=== PATIENT | male | born 1985 | race Caucasian/White ===

== ENCOUNTER 2016-09-30 13:24 | Outpatient (CLI) | payer OTHER ==
[~2016-09-30] VITALS: Ht 190.5 cm; Wt 122.5 kg
[2016-09-30] MEDS ORDERED: BUPIVACAINE 0.25% 30 ML (SENSORCAINE) VIAL ONE (13:27)
[2016-09-30] MEDS ORDERED: TRIAMCINOLONE ACET (KENALOG-40) 40 MG/ML 1 ML VIAL ONE (13:27)
[2016-09-30 13:37] VITALS: BP 116/83
[2016-09-30 14:00] VITALS: BP 135/99
--- NOTE | 2016-09-30 14:31 | Pain Medicine-Procedure ---
Procedure Pre-Op/Post-Op Diagnosis Diagnosis: disc disorder with radiculopathy, lumbar Indications for Operation Low back pain Attending Surgeon Yesica Procedure Date of Service: Sep 30, 2016 Procedure: Lumbar Epidural Steroid Injection at the L4-L5 level under Fluoroscopic Guidance Procedure: Patient was identified in the holding area. After risks, benefits, and alternatives were discussed with the patient, informed consent was obtained. Patient was brought to the fluoroscopy suite and placed prone on the procedure room table. A time out was performed. Vital signs were monitored throughout the procedure. The patients low back was prepped and draped in the usual sterile fashion. The patients skin was anesthetized using 2% Lidocaine. A Tuohy needle was inserted and advanced to the L4-L5 epidural space under fluoroscopic guidance using the loss of resistance technique and intermittent projection of fluoroscopy. There was no paresthesia with needle placement. The needle position was confirmed in both the AP and lateral view. After negative aspiration 2ml of contrast was injected under live fluoroscopy which showed good spread of the contrast in the epidural space at the appropriate level, there was no intravascular or subarachnoid spread. Again, after negative aspiration for heme or CSF, 2 ml of 0.25% Bupivicaine, 2ml of preservative free normal saline, and 80mg of Kenalog was injected. The needle was removed and a sterile bandage was placed and the patient was transferred to the recovery area in stable condition. After a brief period of observation, patient was discharged to home with no new neurological deficits and no apparent complications. Complications None KELLY FERRER MD Sep 30, 2016 2:31 pm
== END 2016-09-30 14:01 | disposition home or self-care (01) ==
LOC: CARD 13:24
PROVIDERS: ATTEND Pain Medicine Pain Medicine
DX: M51.16 Intervertebral disc disorders with radiculopathy, lumbar region (principal)
CPT/HCPCS: 62323

== ENCOUNTER 2020-03-30 10:04 | Emergency (ER) | payer SELFPAY ==
--- NOTE | 2020-03-30 10:14 | NUR ---
This RN went to get the patient from waiting room and the patient wasn't there. The patient told registration staff that he was going to smoke a cigarette. Will attempt to room patient at a later time.
[2020-03-30] MEDS ORDERED: RX-NEO/POLYB/HC OTIC (CORTISPORIN) SUSP 10 ML BTL EACH EAR ONE (11:15)
[2020-03-30] MEDS ORDERED: LIDOCAINE 2% VISCOUS 15 ML UDC PO ONE (11:15)
--- NOTE | 2020-03-30 11:18 | ED EENT ---
History of Present Illness General Chief Complaint: Ear Problems Stated Complaint: LT EAR PAIN/DISCHARGE Nursing Triage Note: ear pain started two days ago in left ear. Is having discharge and hearing loss in left ear. States he has had swimmers ear in the past Source: patient Exam Limitations: no limitations History of Present Illness Date Seen by Provider: Mar 30, 2020 Time Seen by Provider: 10:55 Initial Comments 34-year-old male presents with 3 days of left ear pain with drainage. Denies history of ear infections, has had some loss of hearing subsequently last few days. Denies any nasal congestion, cough, fever or recent illness. Allergies and Home Medications Allergies Coded Allergies: No Known Drug Allergies (Unverified , 03/30/20) Home Medications Tramadol HCl 50 Mg Tablet, 50 MG PO Q6H PRN for PAIN Prescribed by: MUMTAZ CADET on 03/30/20 1126 Patient Home Medication List Home Medication List Reviewed: Yes Review of Systems Review of Systems Constitutional: see HPI; No dizziness, No fever, No malaise, No weakness Eyes: No Symptoms Reported Ears: Denies Dizziness; Pain; Denies Tinnitus, Denies Bloody Discharge, Denies Clear Discharge; Purulent Discharge; Denies Serosanguinous Discharge, Denies Previous Injury Nose: no symptoms reported Mouth: no symptoms reported Throat: no symptoms reported Respiratory: no symptoms reported Past Vhpibcu-Pltiwx-Febwoy Hx Past Med/Social Hx: Reviewed Nursing Past Med/Soc Hx Patient Social History Alcohol Use: Denies Use Recreational Drug Use: No Smoking Status: Current Everyday Smoker Type Used: Cigarettes 2nd Hand Smoke Exposure: Yes Recent Foreign Travel: No Contact w/Someone Who Travel: No Recent Infectious Disease Expo: No Recent Hopitalizations: No Seasonal Allergies Seasonal Allergies: No Past Medical History Surgeries: Yes Tonsillectomy Respiratory: No Cardiac: No Neurological: No Genitourinary: No Gastrointestinal: No Musculoskeletal: No Endocrine: No HEENT: No Cancer: No Psychosocial: No Integumentary: No Blood Disorders: No Adverse Reaction/Blood Tranf: No Physical Exam Vital Signs Vital Signs - First Documented 03/30/20 10:36 Temp 36.4 Pulse 99 Resp 16 B/P (MAP) 150/95 (113) Pulse Ox 96 Height, Weight, BMI Height: 6'3.00" Weight: 270lbs. 0.0oz. 122.549606cm; 33.8 BMI Method: General Appearance: WD/WN, no apparent distress Ears: left ear swelling, left ear tenderness, left ear other (moderate edema of canal & nearly occluded. moderate crusting and drainage or purulent DC) Neck: non-tender, supple; No lymphadenopathy (R), No lymphadenopathy (L) Neurologic/Psychiatric: alert, normal mood/affect Skin: normal color, warm/dry Progress/Results/Core Measures Results/Orders My Orders Orders - MUMTAZ CADET DO Lidocaine 2% Viscous 15 Ml (Xylocaine Vi (03/30/20 11:15) Rx-Govind/Poly/Hc Otic Susp (Rx-Cortisporin (03/30/20 11:15) Medications Given in ED Current Medications Medications Dose Ordered Sig/Kathy Route Start Time Stop Time Status Last Admin Dose Admin Neomycin/ Polymyxin/ Hydrocortisone 1 ml ONCE ONCE EACH EAR 03/30/20 11:15 03/30/20 11:16 DC 03/30/20 11:25 1 ML Vital Signs/I&O 03/30/20 03/30/20 10:36 11:36 Temp 36.4 Pulse 99 84 Resp 16 16 B/P (MAP) 150/95 (113) 145/93 Pulse Ox 96 95 Blood Pressure Mean: 113 Progress Progress Note : Progress Note ear wick inserted without difficulty, pt tolerated well. Departure Impression Primary Impression: Otitis externa Qualified Codes: H60.332 - Swimmer's ear, left ear Disposition: HOME, SELF-CARE Condition: Improved Departure-Patient Inst. Decision time for Depature: 11:23 Referrals: BOLA PEREIRA MD NO,LOCAL PHYSICIAN (PCP) Primary Care Physician Patient Instructions: Outer Ear Infection (DC) Add. Discharge Instructions: Call Dr Pereira (ENT) for a follow up appointment in 1 week, return to the ER sooner if worse All discharge instructions reviewed with patient and/or family. Voiced understanding. Scripts Tramadol HCl (Tramadol HCl) 50 Mg Tablet 50 MG PO Q6H PRN for PAIN for 3 Days, #10 TAB 0 Refills Prov: MUMTAZ CADET DO 03/30/20 Work/School Note: Work Release Form Date Seen in the Emergency Department: Mar 30, 2020 Return to Work: Mar 31, 2020 Restrictions: No Restrictions MUMTAZ CADET DO Mar 30, 2020 11:17
[2020-03-30] MEDS ORDERED: TRM50T PO (11:25)
[2020-03-30 11:36] VITALS: BP 145/93
== END 2020-03-30 11:37 | disposition home or self-care (01) ==
LOC: EDUNIT# 10:04 → ER FS 10:05
DX: H60.92 Unspecified otitis externa, left ear (principal); F17.210 Nicotine dependence, cigarettes, uncomplicated
CPT/HCPCS: 99283

== ENCOUNTER 2020-08-26 14:56 | Emergency (ER) | payer SELFPAY ==
[~2020-08-26 14:56] MED LIST: TRM50T PO
[2020-08-26 15:00] VITALS: BP 147/89
--- NOTE | 2020-08-26 15:29 | ED General ---
General Chief Complaint: General Problems/Pain Stated Complaint: VOMITING; HEARTBURN; LACK OF APPETITE Source of Information: Patient History of Present Illness Date Seen by Provider: Aug 26, 2020 Time Seen by Provider: 14:58 Initial Comments 35 yo male presents with complaint that he has been throwing up and coughing up frothy sputum and phlegm. He has a glass with him that he reports is what he is coughing up and he requests to have it tested to check for "DNA and people's sperm" because he thinks it has his and someone elses sperm in the sputum. He states if we test it then we could confirm that it has 2 people's DNA in it. He then states he knows if we test him for drugs that we will find Meth and "other stuff" because "I admit that I'm an addict, but this is something different going on and I need it checked out". He also says that he has a mental health provider he follows with already and he does not feel he needs to see anyone for that today. He really wants the testing done on the sputum in his glass he brought and wants to know why he is throwing up and "wasting hundreds of dollars of food" with his vomiting and loss of appetite. "If you all can't do that then I guess we are done here and I dont want to waste a bunch of money when you can't do the testing on this." Allergies and Home Medications Allergies Coded Allergies: No Known Drug Allergies (Unverified , 03/30/20) Home Medications Tramadol HCl 50 Mg Tablet, 50 MG PO Q6H PRN for PAIN Prescribed by: MUMTAZ CADET on 03/30/20 1126 Patient Home Medication List Home Medication List Reviewed: Yes Review of Systems Review of Systems Constitutional: No chills, No fever Gastrointestinal: loss of appetite, nausea, vomiting unable to fully assess ROS as pt declined to be fully evaluated once he was told that I could not do DNA testing on his sputum specimen Past Onirbam-Mmkxxn-Bjezmb Hx Past Med/Social Hx: Reviewed Nursing Past Med/Soc Hx Patient Social History Type Used: Cigarettes 2nd Hand Smoke Exposure: Yes Recent Hopitalizations: No Seasonal Allergies Seasonal Allergies: No Past Medical History Surgeries: Yes Tonsillectomy Respiratory: No Cardiac: No Neurological: No Genitourinary: No Gastrointestinal: No Musculoskeletal: No Endocrine: No HEENT: No Cancer: No Psychosocial: No Integumentary: No Blood Disorders: No Adverse Reaction/Blood Tranf: No Physical Exam Vital Signs Capillary Refill : Height, Weight, BMI Height: 6'3.00" Weight: 270lbs. 0.0oz. 122.501171vt; 33.8 BMI Method: General Appearance: Anxious Comments unable to fully assess and perform physical as pt declined full evaluation once he was told that I could not do DNA testing on his sputum specimen Progress/Results/Core Measures Suspected Sepsis SIRS Temperature: Pulse: Respiratory Rate: Blood Pressure / Mean: Results/Orders Vital Signs/I&O Capillary Refill : Progress Note : Progress Note Counseled patient that while I could not perform DNA testing on his sputum I could do a culture. I could also test some basic labs to look at his blood counts his electrolytes and kidney and liver function. These tests may or may not give an answer as to why he was throwing up and losing his appetite. Some of this may be related back to his methamphetamine abuse. Again patient declined to have any further testing done once he knew that the sputum he had could not be tested to see if there was permanent or look for DNA of someone other than himself. I did advise him that the [facility] clinic was available to see patients without insurance as he stated he was not going to hand clinic due to the lack of insurance. I also reassured him and offered him several times the opportunity to stay and have testing and evaluation done here however I told him upfront that there was no promises that I would be able to for sure give him an answer for why he had been having nausea vomiting and loss of appetite. He decided that he would prefer to decline further testing and did not want have to stay in doing further testing beyond the things that he wanted to have done. Especially since he could not have the tests done that he wanted. Departure Impression Primary Impression: Nausea and vomiting Qualified Codes: R11.2 - Nausea with vomiting, unspecified Additional Impressions: Paranoia Methamphetamine abuse Disposition: AGAINST MEDICAL ADVICE Condition: Against Medical Advice Departure-Patient Inst. Decision time for Depature: 15:14 Referrals: NO,LOCAL PHYSICIAN (PCP) Primary Care Physician [facility] Patient Instructions: Methamphetamine, Nausea and Vomiting, Adult ED Add. Discharge Instructions: Follow up with [facility] and establish care for continued evaluation and work up. [phone] All discharge instructions reviewed with patient and/or family. Voiced understanding. ISAAC SELBY MD Aug 26, 2020 15:29
== END 2020-08-26 15:15 | disposition left against medical advice (07) ==
LOC: EDUNIT# 14:56 → ER FS 14:59
DX: R11.2 Nausea with vomiting, unspecified (principal); F22 Delusional disorders; F15.10 Other stimulant abuse, uncomplicated; Z77.22 Contact with and (suspected) exposure to environmental tobacco smoke (acute) (chronic)

== ENCOUNTER 2021-06-28 16:49 | Emergency (ER) | payer SELFPAY ==
[~2021-06-28] VITALS: Ht 190 cm; Wt 160.0 kg
[2021-06-28 17:04] VITALS: BP 124/82
== END 2021-06-28 18:46 | disposition left against medical advice (07) ==
LOC: EDUNIT# 16:49 → ER FS 16:50
DX: R07.89 Other chest pain (principal)
CPT/HCPCS: 99281

== ENCOUNTER 2021-06-29 21:51 | Emergency (ER) | payer SELFPAY ==
[~2021-06-29] VITALS: Ht 190 cm; Wt 144.0 kg
[2021-06-29 22:00] VITALS: BP 114/98
--- NOTE | 2021-06-29 22:23 | ED General ---
General Chief Complaint: General Problems/Pain Stated Complaint: CHEST PRESSURE Nursing Triage Note: PT REPORTS THAT HE FEELS LIKE HE HAS WORMS IN HIS THROAT AND ALL OVER INSIDE HIS BODY. THIS RN WAS LEAVING THE PT ROOM HE STATED "I FEEL LIKE THERE'S A WORM COMING OUT OF MY ASS". PT REPORTS BEING AN IV DRUG USER AND USES METH DAILY. LAST METH USE WAS TODAY. Source of Information: Patient History of Present Illness Date Seen by Provider: Jun 29, 2021 Time Seen by Provider: 22:00 Initial Comments Patient is a 36-year-old male who presents with sore throat, methamphetamine intoxication and hallucinations. He states he can feel and see worms crawling out of his throat and rectum. Patient uses IV methamphetamines daily. No chest pain palpitations shortness of breath. No SI HI, paranoia. No other symptoms or complaints. Timing/Duration: 3-4 Days Severity: Moderate Modifying Factors: improves with Other Associated Systoms: Other Allergies and Home Medications Allergies Coded Allergies: No Known Drug Allergies (Unverified , 03/30/20) Patient Home Medication List Home Medication List Reviewed: Yes Tramadol HCl (Tramadol HCl) 50 Mg Tablet, 50 MG PO Q6H PRN for PAIN Prescribed by: MUMTAZ CADET on 03/30/20 1126 Review of Systems Review of Systems Constitutional: see HPI EENTM: see HPI Respiratory: see HPI Cardiovascular: see HPI Gastrointestinal: see HPI Genitourinary: see HPI Musculoskeletal: see HPI Skin: see HPI Psychiatric/Neurological: See HPI Hematologic/Lymphatic: See HPI Immunological/Allergic: see HPI All Other Systems Reviewed Negative Unless Noted: Yes Past Egjpyne-Ejvdky-Xgajwi Hx Patient Social History Tobacco Use?: Yes Tobacco type used: Cigarettes Smoking Status: Heavy Tobacco Smoker Use of E-Cig and/or Vaping dev: No Substance use?: Yes Substance type: Methamphetamine Substance frequency: Daily Alcohol Use?: No Pt feels they are or have been: No Seasonal Allergies Seasonal Allergies: No Past Medical History Surgeries: Yes Tonsillectomy Respiratory: No Cardiac: No Neurological: No Genitourinary: No Gastrointestinal: No Musculoskeletal: No Endocrine: No HEENT: No Cancer: No Psychosocial: Yes ("pipe") Integumentary: No Blood Disorders: No Adverse Reaction/Blood Tranf: No Physical Exam Vital Signs Vital Signs - First Documented 06/29/21 22:00 Temp 36.0 Pulse 116 Resp 14 B/P (MAP) 114/98 (103) Pulse Ox 100 O2 Delivery Room Air Capillary Refill : Less Than 3 Seconds Height, Weight, BMI Height: 6'3.00" Weight: 270lbs. 0.0oz. 122.997499du; 39.00 BMI Method: General Appearance: No Apparent Distress, Anxious, Other (Pressured speech) Eyes: Bilateral Eye Normal Inspection, Bilateral Eye PERRL HEENT: PERRL/EOMI, Normal ENT Inspection, Pharynx Normal Respiratory: Lungs Clear, Normal Breath Sounds Cardiovascular: Regular Rate, Rhythm Gastrointestinal: Non Tender, Soft Neurologic/Psychiatric: Alert, Oriented x3 Focused Exam Sepsis Stage: Ruled Out Progress/Results/Core Measures Suspected Sepsis SIRS Temperature: Pulse: 116 Respiratory Rate: 14 Blood Pressure 114 /98 Mean: 103 Results/Orders Vital Signs/I&O 06/29/21 22:00 Temp 36.0 Pulse 116 Resp 14 B/P (MAP) 114/98 (103) Pulse Ox 100 O2 Delivery Room Air Capillary Refill : Less Than 3 Seconds Blood Pressure Mean: 103 Departure Communication (Admissions) Patient visual tactile hallucinations likely secondary to methamphetamine use. Patient instructed to discontinue all substances and to follow-up with local PCP. Impression Primary Impression: Methamphetamine abuse Additional Impression: Hallucination Disposition: 01 HOME, SELF-CARE Condition: Stable Departure-Patient Inst. Decision time for Depature: 22:21 Referrals: NO,LOCAL PHYSICIAN (PCP/Family) Primary Care Physician Patient Instructions: Drug Abuse Treatment Add. Discharge Instructions: Please avoid all future drug use and follow-up with local primary care provider. All discharge instructions reviewed with patient and/or family. Voiced understanding. CHANCE SULLIVAN DO Jun 29, 2021 22:23
== END 2021-06-29 22:27 | disposition home or self-care (01) ==
LOC: EDUNIT# 21:51 → ER FS 21:53
DX: F15.10 Other stimulant abuse, uncomplicated (principal); R44.3 Hallucinations, unspecified; F17.210 Nicotine dependence, cigarettes, uncomplicated
CPT/HCPCS: 99281

== ENCOUNTER 2021-07-04 10:41 | Emergency (ER) | payer SELFPAY ==
[~2021-07-04] VITALS: Ht 190 cm; Wt 136.0 kg
--- NOTE | 2021-07-04 11:23 | Diagnostic Imaging Report ---
INDICATION: Chest pain COMPARISON: None. FINDINGS: Frontal and lateral views of the chest demonstrate clear lungs bilaterally. The heart is normal. There is no pneumothorax but osseous structures normal. IMPRESSION: Negative chest. Dictated by: Dictated on workstation # [id number]
--- NOTE | 2021-07-04 11:26 | ED General ---
General Stated Complaint: LUNG PAIN Source of Information: Patient Exam Limitations: No Limitations History of Present Illness Date Seen by Provider: Jul 04, 2021 Time Seen by Provider: 10:57 Initial Comments Here with report of feeling like worms are coming out of his skin, his mouth, his rectum and feels like he is coughing up worms. Does admit to metha mphetamine abuse. He is very concerned because he ate a [employer] peanut butter cup today and then felt like peanuts were coming out of his mouth. Believes he has pinworms. He is not vaccinated for COVID but had COVID infection 1 month ago. Does smoke cigarettes. Denies other concerns currently. Does suffer from poor dentition. Timing/Duration: 2-3 Days Severity: Moderate Associated Systoms: Cough; No Fever/Chills, No Nausea/Vomiting, No Shortness of Air, No Weakness Allergies and Home Medications Allergies Coded Allergies: No Known Drug Allergies (Unverified , 03/30/20) Patient Home Medication List Home Medication List Reviewed: Yes Tramadol HCl (Tramadol HCl) 50 Mg Tablet, 50 MG PO Q6H PRN for PAIN Prescribed by: MUMTAZ CADET on 03/30/20 1126 Review of Systems Review of Systems Constitutional: see HPI; No chills, No fever EENTM: see HPI; No nose congestion Respiratory: see HPI, cough; No short of breath Cardiovascular: No chest pain, No edema Gastrointestinal: see HPI; No nausea, No vomiting Genitourinary: no symptoms reported Musculoskeletal: No back pain, No muscle pain Skin: see HPI, pruritus; No rash Psychiatric/Neurological: Anxiety; Denies Weakness Past Jkboxgx-Rutfhs-Ylkrmo Hx Patient Social History Tobacco Use?: Yes Tobacco type used: Cigarettes Substance use?: Yes Substance type: Methamphetamine Seasonal Allergies Seasonal Allergies: No Past Medical History Surgeries: Yes Tonsillectomy Respiratory: No Cardiac: No Neurological: No Genitourinary: No Gastrointestinal: No Musculoskeletal: No Endocrine: No HEENT: No Cancer: No Psychosocial: Yes ("pipe") Integumentary: No Blood Disorders: No Adverse Reaction/Blood Tranf: No Family Medical History Reviewed Nursing Family Hx No Pertinent Family Hx Physical Exam Vital Signs Vital Signs - First Documented 07/04/21 11:47 Temp 35.6 Pulse 87 B/P (MAP) 110/76 (87) O2 Delivery Room Air Capillary Refill : Height, Weight, BMI Height: 6'3.00" Weight: 270lbs. 0.0oz. 122.978568az; 39.00 BMI Method: General Appearance: WD/WN, Anxious HEENT: PERRL/EOMI, Pharynx Normal, Other (Poor dentition especially in posterior teeth and upper teeth with several missing posterior teeth upper and lower on both sides. Does have some erythema to the gums especially frontal upper teeth.) Neck: Non Tender, Supple Respiratory: Lungs Clear, Normal Breath Sounds Cardiovascular: Regular Rate, Rhythm, No Murmur Neurologic/Psychiatric: Alert, Oriented x3 Skin: Normal Color, Warm/Dry, Other (No obvious lesions and certainly no worms erupting from the skin or anywhere else evaluated.) Progress/Results/Core Measures Suspected Sepsis SIRS Temperature: Pulse: Respiratory Rate: Laboratory Tests 07/04/21 11:25: White Blood Count 8.0 Blood Pressure / Mean: Laboratory Tests 07/04/21 11:25: Creatinine 0.91, Platelet Count 214, Total Bilirubin 0.4 Results/Orders Lab Results Laboratory Tests Test 07/04/21 11:25 Range/Units White Blood Count 8.0 4.3-11.0 10^3/uL Red Blood Count 4.87 4.30-5.52 10^6/uL Hemoglobin 14.8 13.3-17.7 g/dL Hematocrit 45 40-54 % Mean Corpuscular Volume 92 80-99 fL Mean Corpuscular Hemoglobin 30 25-34 pg Mean Corpuscular Hemoglobin Concent 33 32-36 g/dL Red Cell Distribution Width 12.8 10.0-14.5 % Platelet Count 214 130-400 10^3/uL Mean Platelet Volume 10.1 9.0-12.2 fL Neutrophils (%) (Auto) 53 42-75 % Lymphocytes (%) (Auto) 35 12-44 % Monocytes (%) (Auto) 7 0-12 % Eosinophils (%) (Auto) 5 0-10 % Basophils (%) (Auto) 1 0-10 % Neutrophils # (Auto) 4.2 1.8-7.8 X 10^3 Lymphocytes # (Auto) 2.8 1.0-4.0 X 10^3 Monocytes # (Auto) 0.5 0.0-1.0 X 10^3 Eosinophils # (Auto) 0.4 H 0.0-0.3 10^3/uL Basophils # (Auto) 0.1 0.0-0.1 10^3/uL Sodium Level 136 135-145 MMOL/L Potassium Level 4.2 3.6-5.0 MMOL/L Chloride Level 102 98-107 MMOL/L Carbon Dioxide Level 24 21-32 MMOL/L Anion Gap 10 5-14 MMOL/L Blood Urea Nitrogen 19 H 7-18 MG/DL Creatinine 0.91 0.60-1.30 MG/DL Estimat Glomerular Filtration Rate 94 BUN/Creatinine Ratio 21 Glucose Level 82 70-105 MG/DL Calcium Level 9.2 8.5-10.1 MG/DL Corrected Calcium 8.9 8.5-10.1 MG/DL Total Bilirubin 0.4 0.1-1.0 MG/DL Aspartate Amino Transf (AST/SGOT) 31 5-34 U/L Alanine Aminotransferase (ALT/SGPT) 30 0-55 U/L Alkaline Phosphatase 85 40-136 U/L C-Reactive Protein 0.69 H <0.50 MG/DL Total Protein 7.2 6.4-8.2 GM/DL Albumin 4.4 3.2-4.5 GM/DL My Orders Orders - RANGEL ANSARI MD Chest Pa/Lat (2 View) (07/04/21 11:06) Cbc With Automated Diff (07/04/21 11:06) Comprehensive Metabolic Panel (07/04/21 11:06) Crp Fs (07/04/21 11:25) Vital Signs/I&O 07/04/21 11:47 Temp 35.6 Pulse 87 B/P (MAP) 110/76 (87) O2 Delivery Room Air Capillary Refill : Progress Note : Progress Note Seen and evaluated. I did explain to the patient that I do not see any findings for worms but I do have concern about possible dental infection and we will get chest x-ray. We will get basic labs as well. The seem to comfort him. I did discuss with him regarding methamphetamine use and the feeling of bugs in the skin and that this is a common association with methamphetamine use. Verbalized understanding. I did family court counsellor him to quit that which she states that he is trying to do. Monitor patient. 1223: No acute findings. Discharged home with return precautions. Patient verbalized understanding of instructions and agreement with plan. Diagnostic Imaging Diagonstic Imaging: Xray Plain Films/CT/US/NM/MRI: chest Comments NAME: GORAN SALEH [facility] REC#: [id number] PT STATUS: REG ER : 1985 PHYSICIAN: RANGEL ANSARI MD ADMIT DATE: 07/04/21/ER FS Draft Date of Exam:07/04/21 CHEST PA/LAT (2 VIEW) INDICATION: Chest pain COMPARISON: None. FINDINGS: Frontal and lateral views of the chest demonstrate clear lungs bilaterally. The heart is normal. There is no pneumothorax but osseous structures normal. IMPRESSION: Negative chest. Dictated on workstation # [id number] Dict: 07/04/21 112 Trans: 07/04/21 [facility] [id number] Interpreted by: CHASITY THAKKAR Electronically signed by: Departure Impression Primary Impression: Dental infection Additional Impression: Methamphetamine abuse Disposition: HOME, SELF-CARE Condition: Stable Departure-Patient Inst. Decision time for Depature: 12:24 Referrals: NO,LOCAL PHYSICIAN (PCP/Family) Primary Care Physician Patient Instructions: Methamphetamine, Tooth Abscess (DC) Add. Discharge Instructions: Take medications as directed. Make appointment with community health in their substance abuse program and for continued medical evaluation. Return for worse pain, fever, vomiting, weakness, breathing problems or other concerns as needed. You should follow-up with a dentist as soon as possible as well. Scripts Amoxicillin (Amoxicillin) 500 Mg Capsule 500 MG PO TID, #21 CAP 0 Refills Prov: RANGEL ANSARI MD 07/04/21 RANGEL ANSARI MD Jul 04, 2021 11:26
[2021-07-04 11:47] VITALS: BP 110/76
[2021-07-04 12:00] LABS: BASOPHILS % (AUTO) 1 % (0-10); EOSINOPHILS % (AUTO) 5 % (0-10); HEMATOCRIT 45 % (40-54); HEMOGLOBIN 14.8 g/dL (13.3-17.7); LYMPHOCYTES % (AUTO) 35 % (12-44); MEAN CORPUSCULAR HEMOGLOBIN 30 pg (25-34); MEAN CORPUSCULAR HGB CONC 33 g/dL (32-36); MEAN CORPUSCULAR VOLUME 92 fL (80-99); MEAN PLATELET VOLUME 10.1 fL (9.0-12.2); MONOCYTES % (AUTO) 7 % (0-12); NEUTROPHILS % (AUTO) 53 % (42-75); PLATELET COUNT 214 10^3/uL (130-400)
[2021-07-04 12:01] LABS: BASOPHILS # (AUTO) 0.1 10^3/uL (0.0-0.1); EOSINOPHILS # (AUTO) 0.4 10^3/uL (0.0-0.3); LYMPHOCYTES # (AUTO) 2.8 X 10^3 (1.0-4.0); MONOCYTES # (AUTO) 0.5 X 10^3 (0.0-1.0); NEUTROPHILS # (AUTO) 4.2 X 10^3 (1.8-7.8)
[2021-07-04 12:12] LABS: BILIRUBIN,TOTAL 0.4 MG/DL (0.1-1.0); CALCIUM 9.2 MG/DL (8.5-10.1); CREATININE SERUM 0.91 MG/DL (0.60-1.30); POTASSIUM 4.2 MMOL/L (3.6-5.0)
[2021-07-04 12:13] LABS: ALBUMIN 4.4 GM/DL (3.2-4.5); TOTAL PROTEIN 7.2 GM/DL (6.4-8.2)
[2021-07-04] MEDS ORDERED: AMOX500C2 PO (12:26)
== END 2021-07-04 12:36 | disposition home or self-care (01) ==
LOC: EDUNIT# 10:41 → ER FS 10:43
DX: K04.7 Periapical abscess without sinus (principal); F15.10 Other stimulant abuse, uncomplicated; F17.210 Nicotine dependence, cigarettes, uncomplicated
CPT/HCPCS: 36415; 71046; 80053; 85025; 86141; 99281

== ENCOUNTER 2021-09-05 16:05 | Emergency (ER) | payer SELFPAY ==
[~2021-09-05 16:05] MED LIST changes: +AMOX500C2 PO
--- NOTE | 2021-09-05 16:24 | ED General ---
General Stated Complaint: BLOOD IN STOOL,ABD PAIN Source of Information: Patient Exam Limitations: No Limitations History of Present Illness Date Seen by Provider: Sep 05, 2021 Time Seen by Provider: 16:07 Initial Comments 36-year-old male with past medical history of methamphetamine use disorder coming in due to feeling like he has worms throughout his body that are crawling around. He also says he has been scrubbing his anus significantly and sometimes there is blood on his toilet paper. He says that he has tried slowing down on the meth and the symptoms have not improved so he is concerned that he has a significant infection in his body. Denies any pain anywhere at this time. He says he had a bowel movement today that was brown. Does not take any blood thinners. Has never had a GI bleed that he knows of. Does not drink alcohol. Allergies and Home Medications Allergies Coded Allergies: No Known Drug Allergies (Unverified , 03/30/20) Patient Home Medication List Home Medication List Reviewed: Yes Amoxicillin (Amoxicillin) 500 Mg Capsule, 500 MG PO TID Prescribed by: RANGEL ANSARI on 07/04/21 1226 Tramadol HCl (Tramadol HCl) 50 Mg Tablet, 50 MG PO Q6H PRN for PAIN Prescribed by: MUMTAZ CADET on 03/30/20 1126 Review of Systems Review of Systems Constitutional: No chills, No fever EENTM: No blurred vision Respiratory: No cough Cardiovascular: No chest pain Gastrointestinal: No abdominal pain Genitourinary: no symptoms reported Musculoskeletal: no symptoms reported Skin: no symptoms reported Psychiatric/Neurological: No Symptoms Reported Hematologic/Lymphatic: No Symptoms Reported Immunological/Allergic: no symptoms reported All Other Systems Reviewed Negative Unless Noted: Yes Past Ytmhzle-Tiipho-Orwhgh Hx Patient Social History Substance use?: Yes Substance type: Amphetamines Seasonal Allergies Seasonal Allergies: No Past Medical History Surgeries: Yes Tonsillectomy Respiratory: No Cardiac: No Neurological: No Genitourinary: No Gastrointestinal: No Musculoskeletal: No Endocrine: No HEENT: No Cancer: No Psychosocial: Yes ("pipe") Integumentary: No Blood Disorders: No Adverse Reaction/Blood Tranf: No Family Medical History No Pertinent Family Hx Physical Exam Vital Signs Capillary Refill : Height, Weight, BMI Height: 6'3.00" Weight: 270lbs. 0.0oz. [id number]; 37.00 BMI Method: General Appearance: WD/WN, Anxious HEENT: PERRL/EOMI, Normal ENT Inspection, Pharynx Normal Neck: Full Range of Motion, Normal Inspection, Non Tender, Supple Respiratory: Chest Non Tender, Lungs Clear, Normal Breath Sounds, No Accessory Muscle Use, No Respiratory Distress Cardiovascular: Regular Rate, Rhythm, No Edema, Normal Peripheral Pulses Gastrointestinal: Normal Bowel Sounds, Non Tender, Soft; No Distended, No Guarding Rectal: Hemorrhoids, Other (Brown stool) Back: Normal Inspection Extremity: Normal Capillary Refill, Normal Inspection, Normal Range of Motion, Non Tender, No Calf Tenderness, No Pedal Edema Neurologic/Psychiatric: Alert, No Motor/Sensory Deficits, Normal Mood/Affect, Other (Anxious, rapid pressured speech, fidgeting often) Skin: Normal Color, Warm/Dry Lymphatic: No Adenopathy Progress/Results/Core Measures Suspected Sepsis SIRS Temperature: Pulse: Respiratory Rate: Laboratory Tests 09/05/21 16:30: White Blood Count 8.0 Blood Pressure / Mean: Laboratory Tests 09/05/21 16:30: Platelet Count 221 Results/Orders Lab Results Laboratory Tests Test 09/05/21 16:20 09/05/21 16:30 Range/Units Urine Opiates Screen NEGATIVE NEGATIVE Urine Oxycodone Screen NEGATIVE NEGATIVE Urine Methadone Screen NEGATIVE NEGATIVE Urine Propoxyphene Screen NEGATIVE NEGATIVE Urine Barbiturates Screen NEGATIVE NEGATIVE Ur Tricyclic Antidepressants Screen NEGATIVE NEGATIVE Urine Phencyclidine Screen NEGATIVE NEGATIVE Urine Amphetamines Screen POSITIVE H NEGATIVE Urine Methamphetamines Screen POSITIVE H NEGATIVE Urine Benzodiazepines Screen NEGATIVE NEGATIVE Urine Cocaine Screen NEGATIVE NEGATIVE Urine Cannabinoids Screen POSITIVE H NEGATIVE White Blood Count 8.0 4.3-11.0 10^3/uL Red Blood Count 4.92 4.30-5.52 10^6/uL Hemoglobin 14.8 13.3-17.7 g/dL Hematocrit 44 40-54 % Mean Corpuscular Volume 89 80-99 fL Mean Corpuscular Hemoglobin 30 25-34 pg Mean Corpuscular Hemoglobin Concent 34 32-36 g/dL Red Cell Distribution Width 13.2 10.0-14.5 % Platelet Count 221 130-400 10^3/uL Mean Platelet Volume 9.5 9.0-12.2 fL Immature Granulocyte % (Auto) 0 % Neutrophils (%) (Auto) 58 42-75 % Lymphocytes (%) (Auto) 32 12-44 % Monocytes (%) (Auto) 5 0-12 % Eosinophils (%) (Auto) 4 0-10 % Basophils (%) (Auto) 1 0-10 % Neutrophils # (Auto) 4.6 1.8-7.8 10^3/uL Lymphocytes # (Auto) 2.6 1.0-4.0 10^3/uL Monocytes # (Auto) 0.4 0.0-1.0 10^3/uL Eosinophils # (Auto) 0.3 0.0-0.3 10^3/uL Basophils # (Auto) 0.1 0.0-0.1 10^3/uL Immature Granulocyte # (Auto) 0.0 0.0-0.1 10^3/uL My Orders Orders - PRIYANKA RECINOS MD Olanzapine Orally Dissolve Tab (Zyprexa (09/05/21 16:30) Cbc With Automated Diff (09/05/21 16:19) Comprehensive Metabolic Panel (09/05/21 16:19) Drug Screen Stat (Urine) (09/05/21 16:19) Vital Signs/I&O Capillary Refill : Progress Note : Progress Note 36-year-old male with above history 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 He has been seen in our emergency department multiple times for similar. He says he had some blood in his stool, and I checked in his stool is brown with no signs of GI bleed. He does have a hemorrhoid, and the area is slightly raw given he says he has been scrubbing his anus trying to get rid of the parasites. I see no evidence of worms around his anus. Basic labs obtained and he is not anemic further making a GI bleed unlikely. UDS was also obtained. He was given p.o. Z yprexa as he told me he also has schizophrenia and has not been taking his medications. UDS came back with methamphetamines as well as cannabis which was expected. His CBC and BMP are pending at this time. At that point the patient walked out without saying anything and was out of the building before I was able to discuss with him his results. I would have discharged him anyways, he just did not get to be have the formal discharge discussion and education. I do believe this is a result of his drug use and seems consistent with his prior emergency department stays. Departure Impression Primary Impression: Delusions of parasitosis Additional Impression: Methamphetamine use Disposition: HOME, SELF-CARE Condition: Stable Departure-Patient Inst. Decision time for Depature: 16:47 Referrals: NO,LOCAL PHYSICIAN (PCP/Family) Primary Care Physician PRIYANKA RECINOS MD Sep 05, 2021 16:24
[2021-09-05] MEDS ORDERED: OLANZapine 5 MG ODT (ZyPREXA ZYDIS) PO ONE (16:30)
[2021-09-05 16:38] VITALS: BP 144/121
[2021-09-05 16:39] LABS: AMPHETAMINE SCREEN, URINE POSITIVE (NEGATIVE); BARBITURATE SCREEN URINE NEGATIVE (NEGATIVE); BENZODIAZEPINES SCREEN URINE NEGATIVE (NEGATIVE); CANNABINOID SCREEN, URINE POSITIVE (NEGATIVE); COCAINE SCREEN URINE NEGATIVE (NEGATIVE); METHADONE STAT NEGATIVE (NEGATIVE); METHAMPHETAMINE SCREEN URINE S POSITIVE (NEGATIVE); OPIATE SCREEN URINE NEGATIVE (NEGATIVE); OXYCODONE STAT NEGATIVE (NEGATIVE); PROPOXYPHENE STAT NEGATIVE (NEGATIVE); TRICYCLIC ANTIDEPRESSANTS SCRE NEGATIVE (NEGATIVE)
[2021-09-05 16:40] LABS: BASOPHILS # (AUTO) 0.1 10^3/uL (0.0-0.1); BASOPHILS % (AUTO) 1 % (0-10); EOSINOPHILS # (AUTO) 0.3 10^3/uL (0.0-0.3); EOSINOPHILS % (AUTO) 4 % (0-10); HEMATOCRIT 44 % (40-54); HEMOGLOBIN 14.8 g/dL (13.3-17.7); LYMPHOCYTES # (AUTO) 2.6 10^3/uL (1.0-4.0); LYMPHOCYTES % (AUTO) 32 % (12-44); MEAN CORPUSCULAR HEMOGLOBIN 30 pg (25-34); MEAN CORPUSCULAR HGB CONC 34 g/dL (32-36); MEAN CORPUSCULAR VOLUME 89 fL (80-99); MEAN PLATELET VOLUME 9.5 fL (9.0-12.2); MONOCYTES # (AUTO) 0.4 10^3/uL (0.0-1.0); MONOCYTES % (AUTO) 5 % (0-12); NEUTROPHILS # (AUTO) 4.6 10^3/uL (1.8-7.8); NEUTROPHILS % (AUTO) 58 % (42-75); PLATELET COUNT 221 10^3/uL (130-400)
[2021-09-05 17:04] LABS: ALBUMIN 4.1 GM/DL (3.2-4.5); BILIRUBIN,TOTAL 0.2 MG/DL (0.1-1.0); CALCIUM 8.9 MG/DL (8.5-10.1); CREATININE SERUM 0.86 MG/DL (0.60-1.30); POTASSIUM 4.5 MMOL/L (3.6-5.0)
== END 2021-09-05 16:43 | disposition home or self-care (01) ==
LOC: EDUNIT# 16:05 → ER FS 16:07
DX: F22 Delusional disorders (principal); F15.90 Other stimulant use, unspecified, uncomplicated
CPT/HCPCS: 36415; 80053; 80306; 85025; 99283

== ENCOUNTER 2021-11-01 18:16 | Emergency (ER) | payer SELFPAY ==
[~2021-11-01] VITALS: Ht 190.5 cm; Wt 129.0 kg
--- NOTE | 2021-11-01 18:52 | ED Integumentary General ---
General Chief Complaint: Skin/Wound Problems Stated Complaint: R HAND SWELLING/PAIN Nursing Triage Note: Patient presents to the ED with c/o laceration to right thumb. He reports that he cut it on glass and was seen at urgent care yesterday and started on an Antibiotic. States that he thinks there is still glass in his thumb. He has also been putting bag balm on it to try and draw out the glass. History of Present Illness Date Seen by Provider: November 01, 2021 Time Seen by Provider: 18:32 Initial Comments 36-year-old male is here with complaints of swelling and pain and spread of infection from his right thumb all the way up his right arm. Patient sustained a laceration of his right thumb a couple days ago through a broken mirror. Patient went to urgent care yesterday and was started on amoxicillin. Patient has been removing shards of glass since it happened. Patient woke up today and saw that the cellulitis was worsening and that streaks of red and going up his right forearm and arm with more severe pain and swelling. Patient also has pus coming out of the wound in his thumb. Unsure if he has had fever or chills. Allergies and Home Medications Allergies Coded Allergies: No Known Drug Allergies (Unverified , 03/30/20) Patient Home Medication List Home Medication List Reviewed: Yes Amoxicillin (Amoxicillin) 500 Mg Capsule, 500 MG PO TID Prescribed by: RANGEL ANSARI on 07/04/21 1226 Tramadol HCl (Tramadol HCl) 50 Mg Tablet, 50 MG PO Q6H PRN for PAIN Prescribed by: MUMTAZ CADET on 03/30/20 1126 Review of Systems Review of Systems Constitutional: no symptoms reported EENTM: no symptoms reported Respiratory: no symptoms reported Cardiovascular: no symptoms reported Gastrointestinal: no symptoms reported Genitourinary: no symptoms reported Musculoskeletal: joint pain, joint swelling Skin: change in color Psychiatric/Neurological: No Symptoms Reported Endocrine: No Symptoms Reported Hematologic/Lymphatic: No Symptoms Reported Past Egfynap-Gbxgvx-Tedtng Hx Patient Social History Tobacco Use?: Yes Tobacco type used: Cigarettes Smoking Status: Current Everyday Smoker Substance use?: No Alcohol Use?: No Pt feels they are or have been: No Immunizations Up To Date First/Initial COVID19 Vaccinat: Not currently vaccinated Seasonal Allergies Seasonal Allergies: No Past Medical History Surgery/Hospitalization HX: Denies medical or surgical history Surgeries: Yes Tonsillectomy Respiratory: No Cardiac: No Neurological: No Genitourinary: No Gastrointestinal: No Musculoskeletal: No Endocrine: No HEENT: No Cancer: No Psychosocial: Yes ("pipe") Integumentary: No Blood Disorders: No Adverse Reaction/Blood Tranf: No Family Medical History No Pertinent Family Hx Physical Exam Vital Signs Vital Signs - First Documented 11/01/21 18:20 Temp 35.4 Pulse 97 Resp 20 Pulse Ox 97 O2 Delivery Room Air Capillary Refill : Less Than 3 Seconds General Appearance: no apparent distress HEENT: PERRL/EOMI Neck: full range of motion Cardiovascular: regular rate, rhythm Respiratory: lungs clear Gastrointestinal: non tender, soft Extremities: normal range of motion, inflammation (Right thumb has a 1.5cm laceration that is oozing pus and serosanginous fluid, thumb and hand is grossly swollen and tender to palpation. Erythematous inflammmatory streaks going up the patient's right arm, associated with more pain and swelling. ) Neurologic/Psychiatric: alert, normal mood/affect, oriented x 3 Progress/Results/Core Measures Results/Orders Lab Results Laboratory Tests Test 11/01/21 19:00 Range/Units White Blood Count 11.8 H 4.3-11.0 10^3/uL Red Blood Count 5.03 4.30-5.52 10^6/uL Hemoglobin 15.1 13.3-17.7 g/dL Hematocrit 45 40-54 % Mean Corpuscular Volume 89 80-99 fL Mean Corpuscular Hemoglobin 30 25-34 pg Mean Corpuscular Hemoglobin Concent 34 32-36 g/dL Red Cell Distribution Width 12.9 10.0-14.5 % Platelet Count 247 130-400 10^3/uL Mean Platelet Volume 9.7 9.0-12.2 fL Immature Granulocyte % (Auto) 0 % Neutrophils (%) (Auto) 76 H 42-75 % Lymphocytes (%) (Auto) 17 12-44 % Monocytes (%) (Auto) 6 0-12 % Eosinophils (%) (Auto) 2 0-10 % Basophils (%) (Auto) 1 0-10 % Neutrophils # (Auto) 8.9 H 1.8-7.8 10^3/uL Lymphocytes # (Auto) 1.9 1.0-4.0 10^3/uL Monocytes # (Auto) 0.7 0.0-1.0 10^3/uL Eosinophils # (Auto) 0.2 0.0-0.3 10^3/uL Basophils # (Auto) 0.1 0.0-0.1 10^3/uL Immature Granulocyte # (Auto) 0.0 0.0-0.1 10^3/uL Sodium Level 137 135-145 MMOL/L Potassium Level 4.0 3.6-5.0 MMOL/L Chloride Level 101 98-107 MMOL/L Carbon Dioxide Level 22 21-32 MMOL/L Anion Gap 14 5-14 MMOL/L Blood Urea Nitrogen 15 7-18 MG/DL Creatinine 1.06 0.60-1.30 MG/DL Estimat Glomerular Filtration Rate 93 BUN/Creatinine Ratio 14 Glucose Level 91 70-105 MG/DL Lactic Acid Level 0.79 0.50-2.00 MMOL/L Calcium Level 9.3 8.5-10.1 MG/DL Corrected Calcium 9.2 8.5-10.1 MG/DL Total Bilirubin 0.4 0.1-1.0 MG/DL Aspartate Amino Transf (AST/SGOT) 20 5-34 U/L Alanine Aminotransferase (ALT/SGPT) 17 0-55 U/L Alkaline Phosphatase 92 40-136 U/L C-Reactive Protein 4.93 H <0.50 MG/DL Total Protein 7.2 6.4-8.2 GM/DL Albumin 4.1 3.2-4.5 GM/DL My Orders Orders - CHRISTIANO RIOS MD Cbc With Automated Diff (11/01/21 18:52) Comprehensive Metabolic Panel (11/01/21 18:52) Blood Culture (11/01/21 18:52) Crp Fs (11/01/21 18:52) Lactic Acid Analyzer (11/01/21 18:52) Finger(S) (11/01/21 19:01) Drug Screen Stat (Urine) (11/01/21 19:49) Vital Signs/I&O 11/01/21 18:20 Temp 35.4 Pulse 97 Resp 20 B/P (MAP) Pulse Ox 97 O2 Delivery Room Air Progress Progress Note : Progress Note 1. RIGHT THUMB LACERATION WITH HAND & UPPER EXTREMITY CELLULITIS: - XR FINGERS - CBC: WBC of 11.8 with a left shift - CMP - Lactic Acid: normal - Blood cultures - Pt does not want to be transferred by ambulance, he wants to go by private vehicle. - I was speaking with the hospitalist , Dr Mcwilliams when the pt left AMA. Pt told nurse he did meth. Diagnostic Imaging Diagonstic Imaging: Xray Plain Films/CT/US/NM/MRI: hand Comments [facility] [place] NAME: GORAN SALEH [facility] REC#: [id number] PT STATUS: REG ER : 1985 PHYSICIAN: CHRISTIANO RIOS MD ADMIT DATE: 11/01/21/ER FS Signed Date of Exam:11/01/21 FINGER(S) INDICATION: Pain. EXAMINATION: Three views were obtained. FINDINGS: The alignment is grossly normal. There are mild degenerative changes, particularly in the DIP joint right 5th finger. There is no fracture or dislocation. Soft tissues are unremarkable. IMPRESSION: Degenerative changes, however, no acute fracture or dislocation. Dictated by: Dictated on workstation # [id number] Dict: 11/01/211916 Trans: 11/01/211927 [facility] [id number] Interpreted by: ZION MACHADO MD Electronically signed by: ZION MACHADO MD 11/01/211927 Departure Impression Primary Impression: Cellulitis of thumb, right Additional Impression: Cellulitis of right upper extremity Disposition: 07 AGAINST MEDICAL ADVICE Condition: Against Medical Advice Departure-Patient Inst. Referrals: EMILY CORDERO CERAMIC WORKER (PCP/Family) Primary Care Physician CHRISTIANO RIOS MD November 01, 2021 18:52
[2021-11-01 19:09] LABS: BASOPHILS # (AUTO) 0.1 10^3/uL (0.0-0.1); BASOPHILS % (AUTO) 1 % (0-10); EOSINOPHILS # (AUTO) 0.2 10^3/uL (0.0-0.3); EOSINOPHILS % (AUTO) 2 % (0-10); HEMATOCRIT 45 % (40-54); HEMOGLOBIN 15.1 g/dL (13.3-17.7); LYMPHOCYTES # (AUTO) 1.9 10^3/uL (1.0-4.0); LYMPHOCYTES % (AUTO) 17 % (12-44); MEAN CORPUSCULAR HEMOGLOBIN 30 pg (25-34); MEAN CORPUSCULAR HGB CONC 34 g/dL (32-36); MEAN CORPUSCULAR VOLUME 89 fL (80-99); MEAN PLATELET VOLUME 9.7 fL (9.0-12.2); MONOCYTES # (AUTO) 0.7 10^3/uL (0.0-1.0); MONOCYTES % (AUTO) 6 % (0-12); NEUTROPHILS # (AUTO) 8.9 10^3/uL (1.8-7.8); NEUTROPHILS % (AUTO) 76 % (42-75); PLATELET COUNT 247 10^3/uL (130-400); WHITE BLOOD COUNT 11.8 10^3/uL (4.3-11.0)
--- NOTE | 2021-11-01 19:22 | Diagnostic Imaging Report ---
INDICATION: Pain. EXAMINATION: Three views were obtained. FINDINGS: The alignment is grossly normal. There are mild degenerative changes, particularly in the DIP joint right 5th finger. There is no fracture or dislocation. Soft tissues are unremarkable. IMPRESSION: Degenerative changes, however, no acute fracture or dislocation. Dictated by: Dictated on workstation # [id number]
[2021-11-01 19:39] LABS: CREATININE SERUM 1.06 MG/DL (0.60-1.30)
[2021-11-01 19:40] LABS: ALBUMIN 4.1 GM/DL (3.2-4.5); BILIRUBIN,TOTAL 0.4 MG/DL (0.1-1.0); CALCIUM 9.3 MG/DL (8.5-10.1); TOTAL PROTEIN 7.2 GM/DL (6.4-8.2)
== END 2021-11-01 19:50 | disposition left against medical advice (07) ==
LOC: EDUNIT# 18:16 → ER FS 18:17
DX: L03.011 Cellulitis of right finger (principal); F17.200 Nicotine dependence, unspecified, uncomplicated; Z28.310 Unvaccinated for COVID-19
CPT/HCPCS: 36415; 73140; 80053; 83605; 85025; 86141; 87040

== ENCOUNTER 2021-11-04 13:50 | Emergency (ER) | payer SELFPAY ==
[~2021-11-04] VITALS: Ht 190.5 cm; Wt 126.0 kg
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
[2021-11-04] MEDS ORDERED: CLINDAMYCIN 600 MG/50 ML IVPB 50 ML IV ONE (14:15)
[2021-11-04 14:30] LABS: BASOPHILS # (AUTO) 0.1 10^3/uL (0.0-0.1); BASOPHILS % (AUTO) 1 % (0-10); EOSINOPHILS # (AUTO) 0.4 10^3/uL (0.0-0.3); EOSINOPHILS % (AUTO) 6 % (0-10); HEMATOCRIT 49 % (40-54); HEMOGLOBIN 16.4 g/dL (13.3-17.7); LYMPHOCYTES # (AUTO) 2.6 10^3/uL (1.0-4.0); LYMPHOCYTES % (AUTO) 35 % (12-44); MEAN CORPUSCULAR HEMOGLOBIN 30 pg (25-34); MEAN CORPUSCULAR HGB CONC 34 g/dL (32-36); MEAN CORPUSCULAR VOLUME 90 fL (80-99); MEAN PLATELET VOLUME 9.8 fL (9.0-12.2); MONOCYTES # (AUTO) 0.5 10^3/uL (0.0-1.0); MONOCYTES % (AUTO) 7 % (0-12); NEUTROPHILS # (AUTO) 3.7 10^3/uL (1.8-7.8); NEUTROPHILS % (AUTO) 51 % (42-75); PLATELET COUNT 282 10^3/uL (130-400); WHITE BLOOD COUNT 7.3 10^3/uL (4.3-11.0)
[2021-11-04] MEDS ORDERED: LIDOCAINE 1% INJ 20 ML VIAL ONE (14:33)
[2021-11-04 14:39] LABS: ALBUMIN 4.2 GM/DL (3.2-4.5)
[2021-11-04 14:40] LABS: POTASSIUM 4.4 MMOL/L (3.6-5.0)
[2021-11-04 14:41] LABS: CALCIUM 9.7 MG/DL (8.5-10.1)
[2021-11-04 14:42] LABS: TOTAL PROTEIN 7.6 GM/DL (6.4-8.2)
[2021-11-04 14:44] LABS: BILIRUBIN,TOTAL 0.2 MG/DL (0.1-1.0)
[2021-11-04] MEDS ORDERED: LIDOCAINE 1% INJ 20 ML VIAL INJ ONE (14:45)
[2021-11-04 14:46] LABS: CREATININE SERUM 1.34 MG/DL (0.60-1.30)
--- NOTE | 2021-11-04 14:54 | Diagnostic Imaging Report ---
Hand, right, 3 views INDICATION: Infection of the thumb. COMPARISON: 11/01/2021. TECHNIQUE: 3 views of the right thumb. FINDINGS: No fracture or osseous erosion. No soft tissue gas or radiopaque foreign body. There is soft tissue swelling at the base of thumb. IMPRESSION: No soft tissue gas or osseous erosions. Dictated by: Dictated on workstation # [id number]
[2021-11-04 14:57] LABS: ERYTHROCYTE SEDIMENTATION RATE 4 MM/HR (0-15)
[2021-11-04] MEDS ORDERED: CLIN-144 PO (15:27)
[2021-11-04] MEDS ORDERED: ACHD5005 PO (15:27)
[2021-11-04 15:38] VITALS: BP 124/84
== END 2021-11-04 15:38 | disposition home or self-care (01) ==
LOC: EDUNIT# 13:50 → ER 13:52
DX: L03.011 Cellulitis of right finger (principal); D72.829 Elevated white blood cell count, unspecified; Z28.310 Unvaccinated for COVID-19
CPT/HCPCS: 36415; 73130; 80053; 85025; 85652; 86141

== ENCOUNTER 2021-12-02 19:02 | Emergency (ER) | payer SELFPAY ==
[~2021-12-02 19:02] MED LIST changes: +ACHD5005 PO; +CLIN-144 PO
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
== END 2021-12-02 19:11 | disposition left against medical advice (07) ==
LOC: EDUNIT# 19:02 → ER FS 19:05
DX: F15.10 Other stimulant abuse, uncomplicated (principal); K05.10 Chronic gingivitis, plaque induced; Z28.310 Unvaccinated for COVID-19

== ENCOUNTER 2021-12-15 02:08 | Emergency (ER) | payer SELFPAY ==
[~2021-12-15] VITALS: Ht 190.5 cm; Wt 122.0 kg
[2021-12-15] MEDS ORDERED: IBUPROFEN 600 MG (MOTRIN) TAB PO ONE (02:15)
[2021-12-15] MEDS ORDERED: CLINDAMYCIN 150 MG (CLEOCIN) CAP PO ONE (02:15)
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
[2021-12-15] MEDS ORDERED: RX-CLINDAMYCIN 150 MG (CLEOCIN) CAP PPK#4 PO STA (02:48)
[2021-12-15] MEDS ORDERED: CLIN-144 PO (02:48)
[2021-12-15 03:02] VITALS: BP 159/105
== END 2021-12-15 03:02 | disposition home or self-care (01) ==
LOC: EDUNIT# 02:08 → ER FS 02:11
DX: L03.012 Cellulitis of left finger (principal); F17.210 Nicotine dependence, cigarettes, uncomplicated; F17.290 Nicotine dependence, other tobacco product, uncomplicated; Z28.310 Unvaccinated for COVID-19
CPT/HCPCS: 93005

== ENCOUNTER 2021-12-30 12:50 | Emergency (ER) | payer OTHER | END 2021-12-30 12:58 | disposition left against medical advice (07) | LOC: EDUNIT# 12:50 → ER FS 12:52 | DX: Z02.89 Encounter for other administrative examinations (principal) | CPT/HCPCS: 99281 ==